=== PATIENT | female | born 1990 | race Caucasian/White ===

== ENCOUNTER 2020-02-27 03:34 | Outpatient (CLI) | payer MEDICAID | END 2020-02-27 03:35 | disposition critical access hospital (66) | LOC: EMS 03:34 | PROVIDERS: ATTEND Surgery | DX: M54.9 Dorsalgia, unspecified (principal); R45.89 Other symptoms and signs involving emotional state; R51.9 Headache, unspecified; M25.552 Pain in left hip; M25.551 Pain in right hip; M54.2 Cervicalgia; R07.89 Other chest pain | CPT/HCPCS: A0425; A0429; A0999 ==

== ENCOUNTER 2020-02-27 03:44 | Emergency (ER) | payer MEDICAID ==
[2020-02-27] MEDS ORDERED: KETOROLAC 60 MG/2 ML VIAL IM STA (03:56)
--- NOTE | 2020-02-27 04:09 | ED Physician Documentation ---
History of Present Illness - Stated complaint Stated Complaint: GLF, NECK PAIN - Chief complaint Chief Complaint: Trauma Ch/Bk - History obtained from History obtained from: Patient, EMS - Additonal information Additional information: To the emergency department by EMS after slipping in the shower at the hotel and falling onto the tile floor. Patient states that there was a short step that came up and that she thinks she may have hit her back on this. Patient has a history of a L5-S1 fusion and states she has had back pain since. She complains also of neck pain. She states that she remembers slipping and the next thing she knew she was on the floor. She is not really sure if she lost consciousness, but denies headache. No other complaints or injuries at this time. Review of Systems Ten Systems: 10 systems reviewed and negative Constitutional: reports: Reviewed and negative Eyes: reports: Reviewed and negative Ears: reports: Reviewed and negative Nose: reports: Reviewed and negative Throat: reports: Reviewed and negative Cardiac: reports: Reviewed and negative Respiratory: reports: Reviewed and negative GI: reports: Reviewed and negative : reports: Reviewed and negative Skin: reports: Reviewed and negative Musculoskeletal: reports: Neck pain, Back pain Neurologic: reports: Reviewed and negative Psychiatric: reports: Reviewed and negative Endocrine: reports: Reviewed and negative Immunocompromised: reports: Reviewed and negative PD PAST MEDICAL HISTORY - Present Medications Home Medications: Ambulatory Orders Medication Instructions Recorded Confirmed Carisoprodol [Soma] 350 mg PO QID 02/27/20 02/27/20 Clonazepam 0.25 mg PO TID 02/27/20 02/27/20 Cyclobenzaprine [Flexeril] 10 mg PO TID PRN #12 tablet 02/27/20 HYDROcod/ACETAM 5/325 [Kenner 5/325] 1 - 2 ea PO Q6H PRN #5 tablet 02/27/20 - Allergies Allergies/Adverse Reactions: Allergies Allergy/AdvReac Type Severity Reaction Status Date / Time acetaminophen Allergy Emesis Verified 02/27/20 03:57 [From Tylenol-Codeine #3] codeine Allergy Emesis Verified 02/27/20 03:57 [From Tylenol-Codeine #3] PD ED PE NORMAL - Vitals Vital signs reviewed: Yes - General General: Alert and oriented X 3, Other (Emotionally distraught, crying out and swearing. Appears to be in pain.) - HEENT HEENT: Atraumatic, PERRL, EOMI, Moist mucous membranes - Neck Neck: Supple, no meningeal sign, Other (Use tenderness across posterior neck, including C-spine. No palpable step-off.) - Cardiac Cardiac: RRR, No murmur, Strong equal pulses - Respiratory Respiratory: No respiratory distress, Clear bilaterally - Abdomen Abdomen: Soft, Non tender, Non distended - Back Back: Other (Tenderness over the L4-5 area, but otherwise no spinal tenderness. No step-off.) - Derm Derm: Normal color, Warm and dry, No rash - Extremities Extremities: No deformity, No edema, No calf tenderness / cord - Neuro Neuro: Alert and oriented X 3, web weaver 2-12 intact, No motor deficit, No sensory deficit, Normal speech - Psych Psych: Normal affect, Other (Somewhat anxious and emotionally distraught.) Results - Vitals Vitals: Vital Signs - 24 hr 02/27/20 02/27/20 03:49 04:11 Temperature 36.9 C Heart Rate 106 H 77 Respiratory 24 Rate Blood Pressure 139/95 H O2 Saturation 96 Oxygen O2 Source Room air - Rads (name of study) CT c-spine Radiology: Final report received, EMP read indepedently, See rad report (neg) lumbar spine XR Radiology: Final report received, EMP read indepedently, See rad report (no acute findings) PD MEDICAL DECISION MAKING - ED course Complexity details: reviewed results, re-evaluated patient, considered differential, d/w patient ED course: Patient was treated symptomatically with Toradol. She arrived in a c-collar and this was kept on, due to the patient's C-spine tenderness and mechanism of i njury. The patient was sent for CT of the C-spine, as well as lumbar spine x- ray series, both of which were unremarkable. She was still experiencing quite a bit of pain after the Toradol, so she was given a dose of Dilaudid which did help her pain much more. I felt the patient was stable for discharge. We have discussed home management of the symptoms, as well as the usual indications for return. Departure - Departure Disposition: 01 Home, Self Care Clinical Impression: Neck strain Qualifiers: Encounter type: initial encounter Qualified Code(s): S16.1XXA - Strain of muscle, fascia and tendon at neck level, initial encounter Lumbar strain Qualifiers: Encounter type: initial encounter Qualified Code(s): S39.012A - Strain of muscle, fascia and tendon of lower back, initial encounter Condition: Stable Instructions: ED Back Care Tips, ED Sprain Strain Neck Prescriptions: Cyclobenzaprine [Flexeril] 10 mg PO TID PRN #12 tablet PRN Reason: Spasms HYDROcod/ACETAM 5/325 [Kenner 5/325] 1 - 2 ea PO Q6H PRN #5 tablet PRN Reason: Pain Comments: Both the CT scan and the spinal x-ray look good. There is no evidence of a break, dislocation, or any other abnormality at this time. You have most likely strained your neck and back during the fall. This may cause you some pain for the first couple of days but should start to improve after that. You may take the medication as needed to help with your symptoms. You may also use ice, heat, and massage to help with the pain and stiffness, as well.
[2020-02-27] MEDS ORDERED: HYDROmorphone 1 MG/ML CARPUJECT IM STA (04:42)
[2020-02-27 05:27] VITALS: BP 121/76
--- NOTE | 2020-02-27 08:16 | XRAY Report ---
PROCEDURE: Lumbar Spine 2 View INDICATIONS: fall/pain TECHNIQUE: 3 views of the lumbar spine were acquired. COMPARISON: None. FINDINGS: Bones: 5 [id number] vertebrae are present. There is normal bony alignment. No vertebral body compression fractures. No suspicious bony lesions. Soft tissues: Overlying bowel gas pattern is normal. No suspicious soft tissue calcifications. IMPRESSION: Prior spine fusion L5-S1 appears intact. No trauma found. If hidden injury is clinically suspected MR scanning would provide the most accurate assessment if needed. Reviewed by: Bladimir Medina MD on 02/27/2020 8:15 AM PST Approved by: Bladimir Medina MD on 02/27/2020 8:15 AM PST Station ID: [id number]
--- NOTE | 2020-02-27 08:21 | CT Report ---
PROCEDURE: CERVICAL SPINE WO INDICATIONS: fall/pain TECHNIQUE: Noncontrast 3 mm thick sections acquired from the skull base to the T4 level. Sagittal and coronal r eformats were then constructed. For radiation dose reduction, the following was used: automated exp osure control, adjustment of mA and/or kV according to patient size. COMPARISON: None. FINDINGS: Image quality: Excellent. Bones: No fractures or dislocations. Visualized superior ribs are intact. Soft tissues: Prevertebral soft tissues are normal in thickness. No paravertebral hematomas. No ap ical pneumothoraces. IMPRESSION: No trauma found. Reviewed by: Bladimir Medina MD on 02/27/2020 8:19 AM [facility] Approved by: Bladimir Medina MD on 02/27/2020 8:19 AM [facility] Station ID: [id number]
== END 2020-02-27 05:45 | disposition home or self-care (01) ==
LOC: EDBD → ED 03:44
DX: S16.1XXA Strain of muscle, fascia and tendon at neck level, initial encounter (principal); S39.012A Strain of muscle, fascia and tendon of lower back, initial encounter; W01.198A Fall on same level from slipping, tripping and stumbling with subsequent striking against other object, initial encounter; Y93.E1 Activity, personal bathing and showering; Y92.59 Other trade areas as the place of occurrence of the external cause
CPT/HCPCS: 72100; 72125; 96372; 99283; J1170

== ENCOUNTER 2020-02-27 10:52 | Outpatient (CLI) | payer MEDICAID | END 2020-02-27 10:53 | disposition critical access hospital (66) | LOC: EMS 10:52 | PROVIDERS: ATTEND Surgery | DX: R56.9 Unspecified convulsions (principal); R40.0 Somnolence; R10.9 Unspecified abdominal pain | CPT/HCPCS: A0425; A0427; A0999 ==

== ENCOUNTER 2020-02-27 11:03 | Emergency (ER) | payer MEDICAID ==
--- NOTE | 2020-02-27 11:31 | ED Physician Documentation ---
PD HPI SEIZURE - Stated complaint Stated Complaint: SEIZURE - Chief complaint Chief Complaint: Neuro - History obtained from History obtained from: Patient, EMS - History of Present Illness Timing - onset: Today Witnessed: Witnessed Number of seizures: Multiple, Lasted - seconds Description of seizure activity: Generalized Injury during seizure: None Associated symptoms: Headache, Other (back pain from a fall in the shower) History of seizures: Known seizure disorder Contributing factors: Sleep deprivation, Other (fall yesterday pain in the back) Treatment NUCLEAR MEDICINE MEDICAL DIRECTOR: Dextrose Similar symptoms before: Diagnosis (seizure related to crying) Recently seen: Emergency Dept - Additional information Additional information: 29-year-old female who [place] staying in a hotel had a fall last night in the shower landing against the ledge against her back. She has a prior history of back surgery and chronic back pain. She was treated here in the emergency department received a dose of Dilaudid and has not filled her prescription for pain medication a muscle relaxant. She states that they have n ot worked previously and she is not filled them. This morning she had 3 witnessed seizures and states that she does have a seizure disorder they usually occur when she has been crying too much. Review of Systems Constitutional: denies: Fever Eyes: denies: Decreased vision Ears: denies: Ear pain Nose: denies: Congestion Throat: denies: Sore throat Cardiac: denies: Chest pain / pressure, Palpitations Respiratory: denies: Dyspnea, Cough GI: denies: Abdominal Pain, Nausea, Vomiting : denies: Dysuria, Frequency Musculoskeletal: reports: Back pain. denies: Neck pain, Extremity pain Neurologic: denies: Generalized weakness, Focal weakness, Numbness PD PAST MEDICAL HISTORY - Past Medical History Cardiovascular: None Respiratory: None Neuro: None, Seizure disorder Endocrine/Autoimmune: None GI: None MANUFACTURING CONTROLS ENGINEER: None : None HEENT: None Psych: Depression, Anxiety Musculoskeletal: None, Chronic back pain Derm: None - Past Surgical History Past Surgical History: Yes Ortho: Spine surgery - Present Medications Home Medications: Ambulatory Orders Medication Instructions Recorded Confirmed Carisoprodol [Soma] 350 mg PO QID 02/27/20 02/27/20 Clonazepam 0.25 mg PO TID 02/27/20 02/27/20 - Allergies Allergies/Adverse Reactions: Allergies Allergy/AdvReac Type Severity Reaction Status Date / Time acetaminophen Allergy Emesis Verified 02/27/20 03:57 [From Tylenol-Codeine #3] codeine Allergy Emesis Verified 02/27/20 03:57 [From Tylenol-Codeine #3] - Social History Does the pt smoke?: Yes Smoking Status: Current every day smoker Does the pt drink ETOH?: No Does the pt have substance abuse?: No - Immunizations Immunizations are current?: Yes - POLST Patient has POLST: No PD ED PE NORMAL - Vitals Vital signs reviewed: Yes - General General: Well developed/nourished, Other (The patient is laying on the gurney with her eyes closed moaning in pain. She almost looks like she is making fun of somebody in pain. She is acting very feebly in her moaning. When distracted she appears alert and oriented.) - HEENT HEENT: Atraumatic, PERRL, EOMI - Neck Neck: Supple, no meningeal sign, No bony TTP - Cardiac Cardiac: RRR, No murmur - Respiratory Respiratory: No respiratory distress, Clear bilaterally - Abdomen Abdomen: Normal bowel sounds, Soft, Non tender, Non distended, No organomegaly - Back Back: No CVA TTP, Other (There is tenderness to the paraspinous muscles at the lower lumbar spine area. There are no bruises.) - Derm Derm: Normal color, Warm and dry, No rash - Extremities Extremities: No deformity, No edema - Neuro Neuro: Alert and oriented X 3, frame bender 2-12 intact, No motor deficit, No sensory deficit, Normal speech Eye Opening: Spontaneous Motor: Obeys Commands Verbal: Oriented GCS Score: 15 - Psych Psych: Other (Mood is defeated the affect is flat) Results - Vitals Vitals: Vital Signs - 24 hr 02/27/20 02/27/20 02/27/20 11:05 11:11 12:14 Temperature 37.1 C Heart Rate 65 77 64 Respiratory 16 21 15 Rate Blood Pressure 108/76 100/83 H 117/81 H O2 Saturation 95 96 100 02/27/20 02/27/20 02/27/20 13:01 13:33 15:00 Temperature 36.6 C Heart Rate 84 83 88 Respiratory 14 16 17 Rate Blood Pressure 125/73 107/54 L 107/67 O2 Saturation 96 98 98 Oxygen O2 Source Room air - Labs Labs: Laboratory Tests 02/27/20 02/27/20 02/27/20 12:04 12:04 13:00 WBC 6.0 RBC 3.63 L Hgb 11.4 L Hct 35.6 L MCV 98.1 MCH 31.4 H MCHC 32.0 RDW 12.7 Plt Count 305 MPV 9.0 Neut # (Auto) 3.0 Lymph # (Auto) 2.7 [place]ion # (Auto) 0.2 Eos # (Auto) 0.1 Baso # (Auto) 0.0 Absolute Nucleated RBC 0.00 Nucleated RBC % 0.0 Sodium 136 Potassium 3.4 L Chloride 106 Carbon Dioxide 22 Anion Gap 8.0 BUN 11 Creatinine 0.9 Estimated GFR (MDRD) 74 L Glucose 148 H Calcium 9.2 Total Bilirubin 0.6 AST 19 ALT 12 Alkaline Phosphatase 69 Total Protein 7.1 Albumin 4.3 Globulin 2.8 Albumin/Globulin Ratio 1.5 Lipase 35 Urine Color YELLOW Urine Clarity HAZY Urine pH 6.0 Ur Specific Arnold >=1.030 H Urine Protein 30 H Urine Glucose (UA) 500 H Urine Ketones TRACE Urine Occult Blood NEGATIVE Urine Nitrite NEGATIVE Urine Bilirubin NEGATIVE Urine Urobilinogen 0.2 (NORMAL) Ur Leukocyte Esterase NEGATIVE Urine RBC 0-5 Urine WBC 0-3 Ur Squamous Epith Cells MANY Squamous H Urine Bacteria Few Urine Casts 0-2 Hyaline Casts Urine Mucus Marked Strands Ur Microscopic Review INDICATED Urine Culture Comments NOT INDICATED Urine HCG, Qual NEGATIVE Urine Opiates Screen POSITIVE H Ur Oxycodone Screen NEGATIVE Urine Methadone Screen NEGATIVE Ur Propoxyphene Screen NEGATIVE Ur Barbiturates Screen NEGATIVE Ur Tricyclics Screen NEGATIVE Ur Phencyclidine Scrn NEGATIVE Ur Amphetamine Screen POSITIVE H U Methamphetamines Scrn POSITIVE H U Benzodiazepines Scrn POSITIVE H Urine Cocaine Screen NEGATIVE U Cannabinoids Screen NEGATIVE - Rads (name of study) CT head Radiology: Prelim report reviewed (Impression: 1. No evidence of acute stroke, hemorrhage, or mass. No evidence of a significant intracranial sequelae of acute trauma.), EMP read indepedently, See rad report Procedures - IVC sono (time) 1125 Bedside IVC sono: IVC measures (cm) (0.94), Dehydration (est 1-2 liter deficit.) PD MEDICAL DECISION MAKING - ED course Complexity details: reviewed old records, reviewed results, re-evaluated patient, considered differential, d/w patient ED course: 29-year-old female presents to the emergency department again today with seizure. She was seen earlier with back pain from a fall and she has significant anxiety related to stress and has been hyperventilating and developed seizure related to this. While she was in the emergency department she had several seizures she was conscious and awake during them and she did have lowering of her blood sugar several times. This required 2 doses of D50. She was unaware that there was amphetamine or methamphetamine in her blood in her urine specimen and I offered to have the professor of social work come talk to her which she excepted as exceptional stress in her situation with going through a divorce and living in a hotel. She eventually became irritated and impatient took her IV out and demanded to leave. I have nothing to hold her here in the emergency department for. I did check her a CT of her head and her blood work.The only remarkable findings were the amphetamine and methamphetamine in the urine. She did receive a liter of fluid Toradol and dexamethasone and was ambulating in the department quite easily at the time she pulled her line. Departure - Departure Disposition: ED [place] Clinical Impression: Observed seizure-like activity Lumbar strain Qualifiers: Encounter type: sequela Qualified Code(s): S39.012S - Strain of muscle, fascia and tendon of lower back, sequela
[2020-02-27] MEDS ORDERED: HYDROmorphone 1 MG/ML CARPUJECT IVP STA (11:32)
[2020-02-27] MEDS ORDERED: ONDANSETRON 4 MG/2 ML VIAL IVP STA (11:32)
[2020-02-27] MEDS ORDERED: SODIUM CHLORIDE 0.9% 1,000 ML IV STA (11:32)
[2020-02-27] MEDS ORDERED: DEXTROSE 50% ABBOJECT 25 GM/50 ML SYRINGE IVP STA ×2 (11:40→13:24)
--- NOTE | 2020-02-27 12:02 | CT Report ---
PROCEDURE: HEAD WO INDICATIONS: seizure after head injury TECHNIQUE: Noncontrast 4.5 mm thick angled axial sections acquired from the foramen magnum to the vertex. For r adiation dose reduction, the following was used: automated exposure control, adjustment of mA and/or kV according to patient size. COMPARISON: None. FINDINGS: Image quality: Excellent. CSF spaces: Basal cisterns are patent. No extra-axial fluid collections. Ventricles are normal in size and shape. Brain: No midline shift. No intracranial masses or hemorrhage. Hodges-white matter interface is norm al. Skull and face: Calvarium and visualized facial bones are intact, without suspicious lesions. Sinuses: Visualized sinuses and mastoids are clear. IMPRESSION: 1. No evidence of acute stroke, hemorrhage, or mass. 2. No evidence of significant intracranial sequelae of acute trauma. Reviewed by: Narinder Andre MD on 02/27/2020 12:01 PM [facility] Approved by: Narinder Andre MD on 02/27/2020 12:01 PM PST Station ID: [id number]
[2020-02-27] MEDS ORDERED: LORazepam 2 MG/ML VIAL IVP STA (12:08)
[2020-02-27 12:12] LABS: BASOPHILS % (AUTO) 0.5 %; EOSINOPHILS # (AUTO) 0.1 10^3/uL (0.0-0.7); EOSINOPHILS % (AUTO) 1.2 %; HGB - HEMOGLOBIN 11.4 g/dL (12.0-16.0); LYMPHOCYTES # (AUTO) 2.7 10^3/uL (1.5-3.5); LYMPHOCYTES % (AUTO) 45.7 %; MEAN CORPUSCULAR HEMOGLOBIN 31.4 pg (27.0-31.0); MEAN CORPUSCULAR VOLUME 98.1 fL (81.0-99.0); MONOCYTES # (AUTO) 0.2 10^3/uL (0.0-1.0); MONOCYTES % (AUTO) 3.2 %; NEUTROPHILS % (AUTO) 49.2 %; PLT - PLATELET COUNT 305 10^3/uL (130-450); RED BLOOD COUNT 3.63 10^6/uL (4.20-5.40); RED CELL DISTRIBUTION WIDTH 12.7 % (12.0-15.0)
[2020-02-27 12:29] LABS: ALBUMIN 4.3 g/dL (3.2-5.5); ALBUMIN/GLOBULIN RATIO 1.5 (1.0-2.2); BILIRUBIN,TOTAL 0.6 mg/dL (0.2-1.0); CALCIUM 9.2 mg/dL (8.5-10.3); CREATININE 0.9 mg/dL (0.4-1.0); TOTAL PROTEIN 7.1 g/dL (6.7-8.2)
[2020-02-27 13:14] LABS: BILIRUBIN,URINE NEGATIVE (NEGATIVE); GLUCOSE, URINE (UA) 500 mg/dL (NEGATIVE); KETONES,URINE (UA) TRACE mg/dL (NEGATIVE); LEUKOCYTE ESTERASE, URINE NEGATIVE (NEGATIVE); NITRITE,URINE NEGATIVE (NEGATIVE); OCCULT BLOOD,URINE NEGATIVE (NEGATIVE); PROTEIN,URINE 30 mg/dL (NEGATIVE); UROBILINOGEN,URINE 0.2 (NORMAL) E.U./dL (NORMAL)
[2020-02-27 13:17] LABS: CLARITY,URINE HAZY (CLEAR); HCG UR QUAL NEGATIVE
[2020-02-27 13:31] LABS: BACTERIA,URINE Few /HPF (None Seen); MUCUS,URINE Marked Strands; RBC,URINE 0-5 /HPF (0-5); SQUAMOUS EPITHELIAL CELL,UR MANY Squamous (<= Few)
[2020-02-27 13:32] LABS: AMPHETAMINE SCREEN,URINE POSITIVE (NEGATIVE); BENZODIAZEPINES SCREEN, URINE POSITIVE (NEGATIVE); CASTS, URINE 0-2 Hyaline Casts /LPF; COCAINE SCREEN URINE NEGATIVE (NEGATIVE); METHAMPHETAMINES SCREEN, URINE POSITIVE (NEGATIVE); OPIATE SCREEN, URINE POSITIVE (NEGATIVE)
[2020-02-27 13:33] LABS: METHADONE SCREEN, URINE NEGATIVE (NEGATIVE); OXYCODONE SCREEN, URINE NEGATIVE (NEGATIVE); PROPOXYPHENE SCREEN, URINE NEGATIVE (NEGATIVE); TRICYCLIC ANTIDEPRESSANT,URINE NEGATIVE (NEGATIVE)
[2020-02-27 13:38] LABS: MUDS CUTOFF CONCENTRATIONS CUTOFF CONC BELOW:
[2020-02-27 15:03] VITALS: BP 107/67
== END 2020-02-27 15:57 | disposition left against medical advice (07) ==
LOC: EDUNIT# → ED 11:03
DX: R56.9 Unspecified convulsions (principal); S39.012D Strain of muscle, fascia and tendon of lower back, subsequent encounter; W19.XXXD Unspecified fall, subsequent encounter; F17.200 Nicotine dependence, unspecified, uncomplicated
CPT/HCPCS: 70450; 80053; 80306; 81001; 81025; 83690; 85025; 96361; 96374; 96375; 96376; 99283; 99284; J1170; J2060; 36415; 81003; 87086

== ENCOUNTER 2020-06-18 16:16 | Outpatient (CLI) | payer OTHER, MEDICAID ==
[2020-06-18 17:03] LABS: BILIRUBIN,URINE NEGATIVE (NEGATIVE); CLARITY,URINE HAZY (CLEAR); GLUCOSE, URINE (UA) NEGATIVE (NEGATIVE); KETONES,URINE (UA) NEGATIVE (NEGATIVE); LEUKOCYTE ESTERASE, URINE TRACE (NEGATIVE); NITRITE,URINE NEGATIVE (NEGATIVE); OCCULT BLOOD,URINE NEGATIVE (NEGATIVE); PROTEIN,URINE NEGATIVE (NEGATIVE); RBC,URINE 0-5 /HPF (0-5); UROBILINOGEN,URINE 0.2 (NORMAL) E.U./dL (NORMAL); WBC,URINE 0-3 /HPF (0-5)
[2020-06-18 17:04] LABS: BACTERIA,URINE Rare /HPF (None Seen); SQUAMOUS EPITHELIAL CELL,UR MOD Squamous (<= Few)
[2020-06-18 21:15] LABS: CHLAMYDIA TRACHOMATIS DNA NEGATIVE (NEGATIVE); NEISSERIA GONORRHOEAE DNA NEGATIVE (NEGATIVE); TRICHOMONAS VAGINALIS DNA NEGATIVE (NEGATIVE)
== END 2020-06-18 23:59 | disposition home or self-care (01) ==
LOC: LAB.R 16:16
PROVIDERS: ATTEND Registered Nurse
DX: N39.0 Urinary tract infection, site not specified (principal); Z11.3 Encounter for screening for infections with a predominantly sexual mode of transmission; Z01.411 Encounter for gynecological examination (general) (routine) with abnormal findings
CPT/HCPCS: 81001; 81003; 87086; 87491; 87591; 87661